=== PATIENT | female | born 1950 | race African-American/Black ===

== ENCOUNTER 2016-04-26 16:06 | Outpatient (CLI) | payer MEDICARE ==
[2016-04-26 17:43] LABS: ALT (SGPT) 25 U/L (0-55); AST (SGOT) 50 U/L (5-34); Alkaline Phosphatase 113 U/L (40-150); Anion Gap 16 mmol/L (10-20); BUN (Urea Nitrogen) 7 mg/dL (9.8-20.1); Bilirubin, Total 0.5 mg/dL (0.2-1.2); Calc. Creatinine Clearance 0 mL/min (70-130); Calcium 9.5 mg/dL (7.8-10.44); Carbon Dioxide 20 mmol/L (23-31); Chloride 103 mmol/L (98-107); Estimated GFR-MDRD 86; Globulin 3.2 g/dL (2.4-3.5); Protein, Total 7.4 g/dL (5.8-8.1)
[2016-04-26 22:26] LABS: #Basophils 0.1 thou/uL (0.0-0.2); #Lymphocytes 1.7 thou/uL (1.20-3.40); #Monocytes 0.3 thou/uL (0.11-0.59); #Neutrophils 2.3 thou/uL (1.40-6.50); %Basophils 1.8 % (0.0-1.0); %Eosinophils 1.1 % (0.0-10.0); %Monocytes 5.9 % (0.0-10.0); Hematocrit 36.2 % (36.0-47.0); White Blood Cell (WBC) Count 4.4 thou/uL (4.8-10.8)
== END 2016-04-26 16:07 | disposition home or self-care (01) ==
LOC: HPCALD 16:06
PROVIDERS: ATTEND Family Medicine
DX: I16.1 Hypertensive emergency (principal)
CPT/HCPCS: 36415; 80053; 84443; 85025

== ENCOUNTER 2016-06-11 13:58 | Outpatient (CLI) | payer MEDICARE ==
[2016-06-11 15:28] LABS: #Basophils 0.1 thou/uL (0.0-0.2); #Eosinphils 0.1 thou/uL (0.0-0.7); #Lymphocytes 1.3 thou/uL (1.20-3.40); #Monocytes 0.4 thou/uL (0.11-0.59); #Neutrophils 4.2 thou/uL (1.40-6.50); %Basophils 1.7 % (0.0-1.0); %Eosinophils 1.4 % (0.0-10.0); Hematocrit 18.2 % (36.0-47.0); Mean Platelet Volume 5.2 fL (7.4-10.4); White Blood Cell (WBC) Count 6.1 thou/uL (4.8-10.8)
[2016-06-11 15:41] LABS: ALT (SGPT) 31 U/L (0-55); AST (SGOT) 47 U/L (5-34); Alkaline Phosphatase 75 U/L (40-150); Amylase 126 U/L (25-125); Anion Gap 18 mmol/L (10-20); BUN (Urea Nitrogen) 7 mg/dL (9.8-20.1); Bilirubin, Total 0.2 mg/dL (0.2-1.2); Calc. Creatinine Clearance 0 mL/min (70-130); Carbon Dioxide 20 mmol/L (23-31); Chloride 94 mmol/L (98-107); Estimated GFR-MDRD 80; Globulin 2.8 g/dL (2.4-3.5); Lipase 31 U/L (8-78); Protein, Total 6.7 g/dL (5.8-8.1)
== END 2016-06-11 13:59 | disposition home or self-care (01) ==
LOC: HPCALD 13:58
PROVIDERS: ATTEND Family Medicine
DX: M54.6 Pain in thoracic spine (principal); M25.473 Effusion, unspecified ankle; I10 Essential (primary) hypertension
CPT/HCPCS: 36415; 80053; 82150; 83690; 83880; 85025

== ENCOUNTER 2016-06-11 17:19 | Emergency (ER) | payer MEDICARE ==
[2016-06-11 18:08] LABS: Prothrombin Time 13.9 SEC (12.0-14.7)
[2016-06-11 18:16] LABS: ALT (SGPT) 30 U/L (0-55); AST (SGOT) 47 U/L (5-34); Alkaline Phosphatase 70 U/L (40-150); Anion Gap 20 mmol/L (10-20); BUN (Urea Nitrogen) 7 mg/dL (9.8-20.1); Bilirubin, Total 0.2 mg/dL (0.2-1.2); Calc. Creatinine Clearance 0 mL/min (70-130); Calcium 8.8 mg/dL (7.8-10.44); Carbon Dioxide 17 mmol/L (23-31); Chloride 94 mmol/L (98-107); Estimated GFR-MDRD Greater than 90; Globulin 2.9 g/dL (2.4-3.5); Protein, Total 6.6 g/dL (5.8-8.1)
[2016-06-11 18:23] LABS: #Basophils 0.1 thou/uL (0.0-0.2); #Eosinphils 0.1 thou/uL (0.0-0.7); #Lymphocytes 1.4 thou/uL (1.20-3.40); #Monocytes 0.6 thou/uL (0.11-0.59); #Neutrophils 4.9 thou/uL (1.40-6.50); %Basophils 1.6 % (0.0-1.0); %Eosinophils 1.7 % (0.0-10.0); %Monocytes 8.9 % (0.0-10.0); Band 2 % (5-11); Hematocrit 16.2 % (36.0-47.0); Hypochromia MODERATE=16-30 cells (100X) (0-5/hpf); Mean Platelet Volume 5.8 fL (7.4-10.4); Neutrophil 71 % (42-75); Polychromasia SLIGHT = 2-3 cells (100X) (0-2/hpf); Red Blood Cell (RBC) Count 1.61 mill/uL (4.20-5.40); White Blood Cell (WBC) Count 7.1 thou/uL (4.8-10.8)
[2016-06-11 18:45] LABS: Troponin I 0.011 ng/mL (< 0.028)
--- NOTE | 2016-06-12 10:34 | CT ---
CT AORTIC DISSECTION PROTOCOL: Date: 06/11/[address] of the abdomen and pelvis was done with attention to the arterial structures and aorta. Ax ial slices were acquired, then coronal and sagittal reconstructions were done, particularly through the aorta. FINDINGS: CT ANGIO THORAX: There was no sign of aneurysm or dissection in the thoracic portions of the aorta. Some plaque is pr esent, but it is not excessive. There is excellent filling of the pulmonary arteries which show no f illing defects to suggest emboli. There is probably some coronary artery calcifications, but this is difficult to be certain with the contrast present. No mediastinal mass or hematoma was seen. There is no adenopathy of concern. Emphysematous changes are seen throughout the lungs, including areas of blebs or bulla. No pulmonary masses, infiltrates, or effusions seen. CT ABDOMEN/PELVIS: There is no sign of aneurysm or dissection involving the abdominal aorta down through the bifurcatio n. There is some significant plaque near the origin of the celiac artery, though the artery does see m to fill well. Both the SMA and MARTHA filled appropriately, as did both main renal arteries. There ap pears to be an accessory renal artery going to the lower part of the left kidney. The iliac arteries are normal in caliber and fill adequately. The liver, spleen, pancreas, adrenal glands, gallbladder, and kidneys show no acute findings. There is moderate generalized dilation of bowel without organization, thus candice obstruction is not suspected at the moment. Some of the loops are as large as 4.7 cm in diameter, however. Currently, i t has more the appearance of an ileus than obstruction. No free air or free fluid was seen. No gross ly thickened loops of bowel were appreciated. There is a small anterior abdominal wall hernia a few centimeters below the level of the umbilicus a nd to the right. Mesenteric fat herniates through it. CT of the pelvis shows no fluid collections, inflammatory changes, or masses. There may be a few div erticula in the sigmoid colon. There is severe spinal stenosis at L4-L5 with mild anterolisthesis of L4 on L5. Degenerative disc di sease is present at L4-L5 and L5-S1. Finally, I would not that the collecting system of the right kidney is rather prominent, but I canno t see an over cause for obstruction downstream. IMPRESSION: 1. No evidence of aneurysm or dissection. No sign of pulmonary embolism. 2. Emphysematous changes of the lungs. 3. Some plaque formation at the origin of the celiac artery, but all major arteries seem to fill ad equately. 4. Moderate bowel dilation without organization. Pattern is more typical of an ileus than an obstru ction. 5. Small lower anterior abdominal wall hernia with fat in it in the area just below the umbilicus. 6. Severe spinal stenosis L4-L5. 7. Mild prominence of right renal collecting system. POS: HOME
== END 2016-06-11 19:40 | disposition short-term general hospital (02) ==
LOC: BURERS 17:19
DX: D50.0 Iron deficiency anemia secondary to blood loss (chronic) (principal); K92.2 Gastrointestinal hemorrhage, unspecified; I25.9 Chronic ischemic heart disease, unspecified; I10 Essential (primary) hypertension; F17.210 Nicotine dependence, cigarettes, uncomplicated
CPT/HCPCS: 36430; 71275; 80053; 82274; 82553; 84484; 85025; 85610; 86850; 86900; 86901; 86920; 86922; 93005; 99285; P9016; 36415; 82150; 83690; 83880

== ENCOUNTER 2016-06-21 13:29 | Outpatient (CLI) | payer MEDICARE ==
[2016-06-21 14:07] LABS: #Basophils 0.1 thou/uL (0.0-0.2); #Eosinphils 0.4 thou/uL (0.0-0.7); #Lymphocytes 1.5 thou/uL (1.20-3.40); #Monocytes 0.6 thou/uL (0.11-0.59); #Neutrophils 4.8 thou/uL (1.40-6.50); %Basophils 1.6 % (0.0-1.0); %Eosinophils 5.1 % (0.0-10.0); %Monocytes 8.6 % (0.0-10.0); Hematocrit 34.5 % (36.0-47.0); Mean Platelet Volume 6.3 fL (7.4-10.4); Red Blood Cell (RBC) Count 3.76 mill/uL (4.20-5.40); White Blood Cell (WBC) Count 7.5 thou/uL (4.8-10.8)
== END 2016-06-21 13:30 | disposition home or self-care (01) ==
LOC: HPCALD 13:29
PROVIDERS: ATTEND Family Medicine
DX: D50.0 Iron deficiency anemia secondary to blood loss (chronic) (principal)
CPT/HCPCS: 36415; 85025

== ENCOUNTER 2016-06-25 09:11 | Outpatient (CLI) | payer MEDICARE ==
--- NOTE | 2016-06-25 18:23 | ULT ---
ULTRASONOGRAPHY OF RIGHT UPPER QUADRANT: Date: 06/25/16 Ultrasonography of the right upper quadrant was performed. The liver is slightly generous in size, m easuring 16.5 cm in oblique sagittal length. Portal venous flow seems towards the liver. Internally, I saw no space-occupying lesions or dilated ducts. The gallbladder contained no signs of stones. Th e common bile duct was a normal 3.0 mm in caliber. The right kidney appeared normal and was 10.0 cm long. IMPRESSION: No significant right upper quadrant findings. POS: HOME
== END 2016-06-25 09:12 | disposition home or self-care (01) ==
LOC: BURULT 09:11
PROVIDERS: ATTEND Internal Medicine Gastroenterology
DX: D50.0 Iron deficiency anemia secondary to blood loss (chronic) (principal); R94.5 Abnormal results of liver function studies
CPT/HCPCS: 76705

== ENCOUNTER 2016-07-26 16:49 | Emergency (ER) | payer MEDICARE ==
[2016-07-26 17:41] LABS: PTT 26.8 SEC (22.9-36.1); Prothrombin Time 13.1 SEC (12.0-14.7)
[2016-07-26 17:51] LABS: ALT (SGPT) 20 U/L (0-55); AST (SGOT) 37 U/L (5-34); Albumin 4.1 g/dL (3.4-4.8); Alkaline Phosphatase 109 U/L (40-150); Anion Gap 19 mmol/L (10-20); BUN (Urea Nitrogen) 5 mg/dL (9.8-20.1); Bilirubin, Total 0.6 mg/dL (0.2-1.2); Calc. Creatinine Clearance 0 mL/min (70-130); Calcium 8.8 mg/dL (7.8-10.44); Carbon Dioxide 15 mmol/L (23-31); Chloride 99 mmol/L (98-107); Estimated GFR-MDRD Greater than 90; Globulin 3.6 g/dL (2.4-3.5); Glucose 116 mg/dL (80-115); Protein, Total 7.7 g/dL (5.8-8.1); Sodium 130 mmol/L (136-145)
[2016-07-26 17:53] LABS: #Basophils 0.1 thou/uL (0.0-0.2); #Eosinphils 0.1 thou/uL (0.0-0.7); #Monocytes 0.4 thou/uL (0.11-0.59); %Basophils 0.7 % (0.0-1.0); %Eosinophils 1.3 % (0.0-10.0); %Lymphocytes 19.1 % (21.0-51.0); %Monocytes 3.7 % (0.0-10.0); %Neutrophils 75.3 % (42.0-75.0); Anisocytosis MODERATE=16-30 cells (100X) (0-5/hpf); Hemoglobin 10.1 g/dL (12.0-16.0); MDiff Complete? YES; Macrocytosis SLIGHT = 6-15 cells (100X) (0-5/hpf); Mean Corpuscular HGB CONC 32.8 g/dL (32.0-36.0); Mean Corpuscular Hemoglobin 31.2 pg (27.0-31.0); Mean Corpuscular Volume 95.4 fl (81.0-99.0); Mean Platelet Volume 6.4 fL (7.4-10.4); Platelet Count 240 thou/uL (130-400); RBC Distribution Width 20.1 % (11.5-14.5); Red Blood Cell (RBC) Count 3.25 mill/uL (4.20-5.40); White Blood Cell (WBC) Count 10.6 thou/uL (4.8-10.8)
[2016-07-26 18:02] LABS: Potassium 2.9 mmol/L (3.5-5.1)
[2016-07-26] MEDS ORDERED: Potassium Chloride 20 MEQ TAB ONE (18:07)
[2016-07-26] MEDS ORDERED: Potassium Chloride 20 MEQ/100 ML PREMIX BAG ONE (18:08)
[2016-07-26 18:38] LABS: Bilirubin Negative (Negative); Blood, Urine Negative (Negative); Clarity Clear (Clear); Glucose, Urine (Dipstick) Negative (Negative); Leukocyte Negative (Negative); Nitrite Negative (Negative); Protein, Urine (Dipstick) Negative (Neg-Trace); Urobilinogen 0.2 mg/dL (0.2-1.0); pH, Urine 5.5 (5.0-9.0)
--- NOTE | 2016-07-26 21:36 | RAD ---
PELVIS: A single view shows a displaced intertrochanteric fracture of the right hip. The left hip and bony pelvis appeared intact. The SI joints are symmetrical and the symphysis shows no widening. IMPRESSION: Intertrochanteric fracture of the right hip POS: HOME
--- NOTE | 2016-07-26 21:37 | RAD ---
RIGHT HIP: Three views show a displaced intertrochanteric fracture of the hip. There is no dislocation of the femoral head. The articular surfaces of the joint are smooth and the adjacent pubic ring appears in tact. IMPRESSION: Displaced intertrochanteric fracture of the hip POS: HOME
--- NOTE | 2016-07-26 22:05 | RAD ---
PORTABLE CHEST: Date: 07-26-16 FINDINGS: An AP portable film at 1715 is compared with a 06-13-16 study. Mild cardiomegaly is no different than before. The lungs are clear. There is no congestive change or pleural effusion. No fractures were appreciated. IMPRESSION: Stable exam showing mild cardiomegaly but no acute finding. POS: HOME
== END 2016-07-26 19:44 | disposition short-term general hospital (02) ==
LOC: BURERS 16:49
DX: S72.141A Displaced intertrochanteric fracture of right femur, initial encounter for closed fracture (principal); E86.0 Dehydration; E87.6 Hypokalemia; E87.1 Hypo-osmolality and hyponatremia; I10 Essential (primary) hypertension; F17.210 Nicotine dependence, cigarettes, uncomplicated; X58.XXXA Exposure to other specified factors, initial encounter
CPT/HCPCS: 51702; 71010; 72170; 80053; 81003; 82550; 85025; 85610; 85730; 93005; 94760; 96365; 96375; 96376; J2270; J3480

== ENCOUNTER 2016-11-02 08:45 | Outpatient (CLI) | payer MEDICARE ==
[2016-11-02 12:36] LABS: #Basophils 0.1 thou/uL (0.0-0.2); #Eosinphils 0.2 thou/uL (0.0-0.7); #Lymphocytes 2.1 thou/uL (1.20-3.40); #Monocytes 0.3 thou/uL (0.11-0.59); #Neutrophils 1.5 thou/uL (1.40-6.50); %Basophils 1.9 % (0.0-1.0); %Lymphocytes 49.9 % (21.0-51.0); %Monocytes 7.1 % (0.0-10.0); %Neutrophils 37.1 % (42.0-75.0); Hemoglobin 10.7 g/dL (12.0-16.0); Mean Corpuscular HGB CONC 31.4 g/dL (32.0-36.0); Mean Corpuscular Hemoglobin 29.1 pg (27.0-31.0); Mean Corpuscular Volume 92.8 fl (81.0-99.0); Mean Platelet Volume 6.4 fL (7.4-10.4); Platelet Count 187 thou/uL (130-400); RBC Distribution Width 17.7 % (11.5-14.5); Red Blood Cell (RBC) Count 3.69 mill/uL (4.20-5.40); White Blood Cell (WBC) Count 4.2 thou/uL (4.8-10.8)
[2016-11-02 12:53] LABS: ALT (SGPT) 16 U/L (8-55); AST (SGOT) 37 U/L (5-34); Albumin 3.6 g/dL (3.4-4.8); Alkaline Phosphatase 101 U/L (40-150); Bilirubin, Direct 0.2 mg/dL (0.1-0.3); Bilirubin, Total 0.5 mg/dL (0.2-1.2); Cholesterol 213 mg/dl (< 200 Desired); HDL Cholesterol 104 mg/dL (>60 Neg Risk); LDL Cholesterol, Calculated 43 mg/dL; Protein, Total 7.3 g/dL (6.0-8.3); Triglycerides 330 mg/dL (Less than 150)
== END 2016-11-02 08:46 | disposition home or self-care (01) ==
LOC: HPCALD 08:45
PROVIDERS: ATTEND Family Medicine
DX: D75.89 Other specified diseases of blood and blood-forming organs (principal); R74.0 Nonspecific elevation of levels of transaminase and lactic acid dehydrogenase [LDH]; I10 Essential (primary) hypertension; M89.9 Disorder of bone, unspecified
CPT/HCPCS: 36415; 80061; 80076; 82306; 85025

== ENCOUNTER 2016-11-09 11:53 | Outpatient (CLI) | payer MEDICARE ==
[2016-11-09 18:27] LABS: Iron 76 ug/dL (50-170); Iron Binding Capacity, Total 435 mcg/dL (265-497)
[2016-11-09 18:37] LABS: Folate (Folic Acid) 4.5 ng/mL (7.0-31.4)
== END 2016-11-09 11:54 | disposition home or self-care (01) ==
LOC: HPCALD 11:53
PROVIDERS: ATTEND Family Medicine
DX: D61.818 Other pancytopenia (principal)
CPT/HCPCS: 36415; 82607; 82746; 83540; 83550

== ENCOUNTER 2018-12-04 13:58 | Emergency (ER) | payer MEDICARE ==
[2018-12-04] MEDS ORDERED: Meclizine HCl 25 MG TAB ONE (14:54)
--- NOTE | 2018-12-04 15:43 | CT ---
CT BRAIN WITHOUT CONTRAST: 12/04/2018 COMPARISON: No prior films available for comparison. FINDINGS: The ventricles are normal in size with no shift. No intracranial bleeding, mass, or sign of acute st roke is found. Small or very recent strokes would be better seen by MRI. There is probably a small amount of deep white matter lucency, which could be some early chronic ischemic change. The findings are not impressive. The posterior fossa is unremarkable. The mastoid air cells are clear. Each IA C is somewhat narrower than one often sees, but this is true on each side. The visible paranasal sin uses are clear. IMPRESSION: No acute intracranial findings. POS: HOME
== END 2018-12-04 15:57 | disposition home or self-care (01) ==
LOC: BURERS 13:58
DX: R42 Dizziness and giddiness (principal); I10 Essential (primary) hypertension; F17.210 Nicotine dependence, cigarettes, uncomplicated; Z79.899 Other long term (current) drug therapy
CPT/HCPCS: 70450; 93005; J8597

== ENCOUNTER 2022-07-16 09:44 | Outpatient (CLI) | payer MEDICARE | END 2022-07-16 09:45 | disposition home or self-care (01) | LOC: BURCT 09:44 | PROVIDERS: ATTEND Family Medicine | DX: R10.13 Epigastric pain (principal); R63.4 Abnormal weight loss; K42.9 Umbilical hernia without obstruction or gangrene; K86.89 Other specified diseases of pancreas; Z98.890 Other specified postprocedural states | CPT/HCPCS: 74177 ==

== ENCOUNTER 2025-04-05 18:22 | Emergency (ER) | payer MEDICARE ==
[2025-04-05 18:59] LABS: Hematocrit 41.9 % (36.0-47.0); Hemoglobin 13.9 g/dL (12.0-16.0); MDiff Complete? YES; Mean Corpuscular Hemoglobin 31.7 pg (27.0-31.0); Mean Corpuscular Volume 95.9 fl (78.0-98.0); Platelet Count 308 10x3/uL (130-400); Red Blood Cell (RBC) Count 4.37 mill/uL (4.20-5.40); White Blood Cell (WBC) Count 7.5 10x3/uL (4.8-10.8)
[2025-04-05 19:11] LABS: ALT (SGPT) 11 U/L (Less than 34); AST (SGOT) 27 U/L (11-34); Albumin 4.5 g/dL (3.1-4.5); Alkaline Phosphatase 98 U/L (40-110); Anion Gap 28 mmol/L (10-20); BUN (Urea Nitrogen) 42 mg/dL (9.8-20.1); Bilirubin, Total 0.4 mg/dL (0.3-1.2); CK (CPK) 183 U/L (29-168); Calc. Creatinine Clearance 0 mL/min (70-130); Calcium 9.7 mg/dL (7.8-10.44); Carbon Dioxide 13 mmol/L (23-31); Chloride 99 mmol/L (98-107); Globulin 4.3 g/dL (2.4-3.5); Glucose 153 mg/dL (83-110); Lipase 14 U/L (8-78); Magnesium 2.0 mg/dL (1.6-2.6); Potassium 3.5 mmol/L (3.5-5.1); Sodium 136 mmol/L (136-145)
[2025-04-05 19:13] LABS: Troponin I 0.046 ng/mL (< 0.028)
[2025-04-05 19:40] LABS: Bicarbonate (HCO3v) 19.3 mmol/L (22.0-28.0); CO2 Tension (PvCO2) 37.9 mmHg (42.0-51.0); Calcium, Ionized 1.09 mmol/L (1.15-1.33); Chloride 104 mmol/L (98-107); Hemoglobin - Calc 15.3 g/dL (12.0-16.0); Potassium 3.3 mmol/L (3.5-5.1); Sodium 133 mmol/L (138-145); T. Carbon Dioxide 20.5 mmol/L (22.0-28.0); vO2 Saturation-calc 85.2 % (60.0-85.0)
== END 2025-04-06 00:02 | disposition short-term general hospital (02) ==
LOC: BURERS 18:22
DX: K56.2 Volvulus (principal); R94.31 Abnormal electrocardiogram [ECG] [EKG]; N17.9 Acute kidney failure, unspecified; J44.9 Chronic obstructive pulmonary disease, unspecified; E86.0 Dehydration; E87.20 Acidosis, unspecified; R79.89 Other specified abnormal findings of blood chemistry; K86.1 Other chronic pancreatitis; K56.609 Unspecified intestinal obstruction, unspecified as to partial versus complete obstruction; I10 Essential (primary) hypertension; F17.210 Nicotine dependence, cigarettes, uncomplicated; Z79.899 Other long term (current) drug therapy
CPT/HCPCS: 71250; 74177; 80053; 82330; 82435; 82550; 82803; 83605; 83690; 83735; 83880; 84132; 84295; 84484; 85014; 85025; 85379; 93005; J2543; 36415; 96372; 96374